=== PATIENT | female | born 1985 | race African-American/Black ===

== ENCOUNTER 2018-04-09 13:47 | Emergency (ER) | payer MEDICAID ==
[~2018-04-09] VITALS: Ht 157.5 cm; Wt 82.0 kg
[2018-04-09 14:25] VITALS: BP 127/67
== END 2018-04-09 15:50 | disposition home or self-care (01) ==
LOC: ER 15:27
DX: T78.40XA Allergy, unspecified, initial encounter (principal); W57.XXXA Bitten or stung by nonvenomous insect and other nonvenomous arthropods, initial encounter; F17.200 Nicotine dependence, unspecified, uncomplicated
CPT/HCPCS: 99283

== ENCOUNTER 2018-05-08 17:45 | Emergency (ER) | payer MEDICAID ==
[~2018-05-08] VITALS: Ht 157.5 cm; Wt 88.7 kg
[2018-05-08 23:40] VITALS: BP 128/80
== END 2018-05-08 23:40 | disposition home or self-care (01) ==
LOC: ER 17:45
DX: L03.116 Cellulitis of left lower limb (principal); L03.115 Cellulitis of right lower limb; J45.909 Unspecified asthma, uncomplicated; F17.200 Nicotine dependence, unspecified, uncomplicated; F12.10 Cannabis abuse, uncomplicated
CPT/HCPCS: 81025; 99283; Z7610